=== PATIENT | female | born 1995 | race Caucasian/White ===

== ENCOUNTER 2017-02-09 13:01 | Emergency (ER) | payer MEDICAID ==
--- NOTE | 2017-02-20 21:34 | ER ---
ADMIT: 02/09/2017 RM/LOC: ER [facility] MR#: [id number] [id number] [place] MARTINS [place] [address] Emergency Room Report SEX: F AGE: 21 : 1995 DATE: 02/09/2017 ADDENDUM: This patient comes to the ER because she has been hysterical today. According to her parents, she has been having issues at school and that they think somebody is scaring her and maybe bulling her. On physical exam, she is tearful and very anxious. Her lungs are clear. Abdomen is soft. I did speak with the parents at length, and they feel like talking to the teachers is not helping with the situation. We did contact the local police department to see if there was anything they could do just to reassure the patient or maybe look into the situation. She was given Ativan in the ER, which did help her anxiety. I wrote a prescription for 10 Xanax, and they are to follow up with her doctor. Please see my T-sheet. CHASE Rea / Govind Ty MD / shival JOB #: [id number] CC: Govind Ty MD, Attending Physician Batsheva Briggs MD, Family Physician Melanie Gunn MD
== END 2017-02-09 15:00 | disposition home or self-care (01) ==
LOC: ER 13:01
DX: F45.8 Other somatoform disorders (principal); F41.9 Anxiety disorder, unspecified